=== PATIENT | female | born 1995 | race Two or more races ===

== ENCOUNTER 2023-11-07 07:28 | Emergency (ER) | payer OTHER ==
[2023-11-07 07:37] VITALS: BMI 22.4
[2023-11-07] MEDS ORDERED: ACETAMINOPHEN 325 MG TABLET (FP) ONE (09:15)
[2023-11-07 09:29] LABS: BASO % 0.2 % (0-2.0); EOS % 0.9 % (0-4.5); HEMATOCRIT 31.5 % (32.4-45.2); LYMPH % 11.6 % (8-40); MCH 32.5 pg (25.7-33.7); MCHC 34.9 g/dl (32.0-36.0); MEAN PLT VOLUME 6.1 fl (7.5-11.1); MONO % 6.3 % (3.8-10.2); PLATELET COUNT 222 10^3/uL (134-434); RBC 3.39 M/mm3 (3.60-5.2); WHITE BLOOD COUNT 9.1 K/mm3 (4.0-10.0)
[2023-11-07] MEDS: ACETAMINOPHEN 500 MG TABLET (FP) PO ONE (09:34)
[2023-11-07 09:36] LABS: INR 0.9 (0.83-1.09); PROTHROMBIN TIME (PATIENT) 10.4 SEC (9.7-13.0)
[2023-11-07 09:39] LABS: ACTIVATED PTT 30.9 SECONDS (25.2-36.5)
[2023-11-07 09:55] LABS: POTASSIUM 3.8 mmol/L (3.5-5.1)
[2023-11-07 09:57] LABS: ALBUMIN 2.9 g/dl (3.4-5.0); CALCIUM 8.6 mg/dL (8.5-10.1)
[2023-11-07 09:58] LABS: BLOOD UREA NITROGEN 5.7 mg/dL (7-18)
[2023-11-07 10:01] LABS: CREATININE 0.4 mg/dL (0.55-1.3)
[2023-11-07 10:02] LABS: BILIRUBIN,TOTAL 0.3 mg/dL (0.2-1); TOT PROT 6.2 g/dl (6.4-8.2)
[2023-11-07 14:28] VITALS: BP 96/66; PULSE 90; RESP 16; TEMP 98.8
== END 2023-11-07 14:09 | disposition left against medical advice (07) ==
LOC: JER 07:28
DX: O99.891 Other specified diseases and conditions complicating pregnancy (principal); R07.81 Pleurodynia; Z3A.00 Weeks of gestation of pregnancy not specified
CPT/HCPCS: 36415; 80053; 84443; 84484; 85025; 85379; 85610; 85730; 93005; 93010; 99284-25

== ENCOUNTER 2023-11-07 14:15 | Emergency (ER) | payer OTHER ==
[2023-11-07 14:20] VITALS: BP 93/57; PULSE 73; RESP 18; TEMP 98.6; BMI 22.4
== END 2023-11-07 16:50 | disposition home or self-care (01) ==
LOC: JER 14:15
DX: O99.891 Other specified diseases and conditions complicating pregnancy (principal); R07.81 Pleurodynia; R06.02 Shortness of breath; Z3A.00 Weeks of gestation of pregnancy not specified
CPT/HCPCS: 71275-TC; 93005; 93010; 99284-25; Q9967